=== PATIENT | female | born 1970 | race Two or more races ===

== ENCOUNTER 2021-09-22 13:56 | Emergency (ER) | payer OTHER ==
[~2021-09-22] VITALS: Ht 167.6 cm; Wt 81.6 kg
[2021-09-22] MEDS ORDERED: TOPROL XL25 M1 PO (14:09)
[2021-09-22] MEDS ORDERED: ORPHENADRINE C100 MG PO (18:40)
== END 2021-09-22 18:46 | disposition home or self-care (01) ==
LOC: ER 13:56
DX: T14.8XXA Other injury of unspecified body region, initial encounter (principal); V49.9XXA Car occupant (driver) (passenger) injured in unspecified traffic accident, initial encounter; Y93.9 Activity, unspecified; Y92.413 State road as the place of occurrence of the external cause; Y99.9 Unspecified external cause status; I10 Essential (primary) hypertension

== ENCOUNTER 2025-02-12 12:16 | Emergency (ER) | payer OTHER ==
[~2025-02-12] VITALS: Ht 167.6 cm; Wt 90.7 kg
[~2025-02-12 12:16] MED LIST: COZAAR100 MG PO; LEVO-T25 MCG PO; ORPHENADRINE C100 MG PO; TOPROL XL25 M1 PO
[2025-02-12 12:24] VITALS: BP 120/90; O2SAT 100
[2025-02-12] MEDS ORDERED: TRAMADOL HCL 50 MG TABLET PO ONE (12:45)
[2025-02-12] MEDS ORDERED: NORFLEX100MG PO (14:34)
== END 2025-02-12 14:41 | disposition home or self-care (01) ==
LOC: ER 12:16
DX: R51.9 Headache, unspecified (principal); W18.39XA Other fall on same level, initial encounter; Y93.89 Activity, other specified; Y92.413 State road as the place of occurrence of the external cause; M25.511 Pain in right shoulder; M54.2 Cervicalgia; M25.561 Pain in right knee; M25.551 Pain in right hip; M79.641 Pain in right hand